=== PATIENT | male | born 1970 | race Caucasian/White ===

== ENCOUNTER 2018-11-06 06:33 | Inpatient (IN) | payer OTHER, MEDICAID, MEDICARE ==
[2018-11-06] MEDS: SOD CHLORIDE 0.9% 500 ML IV (06:51)
[2018-11-06] MEDS: LABETALOL HCL 20MG INJ IV (06:51)
[2018-11-06] MEDS: ASPIRIN 325 MG TAB PO (06:51)
[2018-11-06 06:56] LABS: ADD MAN DIFF? NO
[2018-11-06 06:59] LABS: BASOPHIL # 0.1 10^3/ul (0.0-0.1); BASOPHILS % 0.8 % (0.0-2.0); EOSINOPHILS # 0.4 10^3/ul (0.0-0.5); EOSINOPHILS % 5.4 % (0.0-7.0); HEMATOCRIT 39.4 % (42.0-52.0); HEMOGLOBIN 12.3 g/dl (14.0-18.0); LYMPHOCYTES # 1.8 10^3/ul (0.8-2.9); MEAN CORPUSCULAR HEMOGLOBIN 28.1 pg (29.0-33.0); MEAN CORPUSCULAR HGB CONC 31.2 g/dl (32.0-37.0); MEAN PLATELET VOLUME 9.3 fl (7.4-10.4); MONOCYTE # 0.7 10^3/ul (0.3-0.9); MONOCYTES % 10.1 % (0.0-11.0); NEUTROPHIL # 3.6 10^3/ul (1.6-7.5); NEUTROPHILS % 55.5 % (39.0-77.0); PLATELET COUNT 239 10^3/UL (140-415); RED BLOOD COUNT 4.38 10^6/ul (4.70-6.10)
[2018-11-06 06:59] LABS: WHITE BLOOD COUNT 6.5 10^3/ul (4.8-10.8)
[2018-11-06 07:21] LABS: INR 1.05; PROTIME 13.8 Sec (11.9-14.9); PT RATIO 1.1
[2018-11-06 07:22] LABS: PARTIAL THROMBOPLASTIN TIME 31.2 Sec (23.0-35.0)
[2018-11-06 07:31] LABS: ALANINE AMINOTRANSFERASE 23 IU/L (13-69); ALBUMIN 3.8 g/dl (3.3-4.9); ALBUMIN/GLOBULIN RATIO 0.97; ALKALINE PHOSPHATASE 179 IU/L (42-121); ANION GAP 17 (5-13); ASPARTATE AMINO TRANSFERASE 25 IU/L (15-46); BLOOD UREA NITROGEN 34 mg/dl (7-20); CALCIUM 7.4 mg/dl (8.4-10.2); CARBON DIOXIDE 27 mmol/L (21-31); CHLORIDE 100 mmol/L (97-110); CREATINE KINASE 39 IU/L (23-200); CREATININE 6.38 mg/dl (0.61-1.24); Estimated GFR 9 mL/min (>60); GLUCOSE 106 mg/dl (70-220); POTASSIUM 4.1 mmol/L (3.5-5.1); SODIUM 144 mmol/L (135-144); TOTAL PROTEIN 7.7 g/dl (6.1-8.1)
[2018-11-06] MEDS: DILTIAZEM 25 MG INJ IV ×2 (07:38→08:14)
[2018-11-06 07:39] LABS: CK INDEX 0.9; CK-MB 0.35 ng/ml (0.0-2.4); TROPONIN-I < 0.012 ng/ml (0.000-0.120)
[2018-11-06] MEDS ORDERED: ACETAMINOPHEN 325 MG TAB PO (09:00)
[2018-11-06] MEDS ORDERED: ONDANSETRON 4 MG INJ IV ×2 (09:00→13:00)
[2018-11-06] MEDS ORDERED: LORAZEPAM 0.5 MG TAB PO (13:00)
[2018-11-06 15:02] LABS: CREATINE KINASE 42 IU/L (23-200)
[2018-11-06 15:15] LABS: CK INDEX 0.9; CK-MB 0.39 ng/ml (0.0-2.4); TROPONIN-I < 0.012 ng/ml (0.000-0.120)
[2018-11-06] MEDS: SEVELAMER CARBONATE 0.8 GM PKT PO (17:44)
[2018-11-06] MEDS: DOCUSATE SODIUM 100 MG CAP PO ×2 (17:45→21:03)
[2018-11-06] MEDS: CINACALCET 30 MG TAB PO (17:45)
[2018-11-06] MEDS: HEPARIN 5,000 UNIT/1 ML VIAL SC (21:01)
[2018-11-06 21:10] LABS: CREATINE KINASE 49 IU/L (23-200)
[2018-11-06 21:23] LABS: CK INDEX 0.7; CK-MB 0.32 ng/ml (0.0-2.4); TROPONIN-I < 0.012 ng/ml (0.000-0.120)
[2018-11-07] MEDS: ACETAMINOPHEN 325 MG TAB PO (01:20)
[2018-11-07 06:06] LABS: ADD MAN DIFF? NO
[2018-11-07 06:12] LABS: BASOPHIL # 0.1 10^3/ul (0.0-0.1); BASOPHILS % 0.9 % (0.0-2.0); EOSINOPHILS # 0.4 10^3/ul (0.0-0.5); EOSINOPHILS % 6.9 % (0.0-7.0); HEMATOCRIT 38.7 % (42.0-52.0); HEMOGLOBIN 12.1 g/dl (14.0-18.0); LYMPHOCYTES # 1.9 10^3/ul (0.8-2.9); MEAN CORPUSCULAR HEMOGLOBIN 28.1 pg (29.0-33.0); MEAN CORPUSCULAR HGB CONC 31.3 g/dl (32.0-37.0); MEAN CORPUSCULAR VOLUME 89.8 fl (82.0-101.0); MEAN PLATELET VOLUME 9.6 fl (7.4-10.4); MONOCYTE # 0.5 10^3/ul (0.3-0.9); MONOCYTES % 8.9 % (0.0-11.0); NEUTROPHIL # 2.7 10^3/ul (1.6-7.5); NEUTROPHILS % 49.1 % (39.0-77.0); PLATELET COUNT 236 10^3/UL (140-415); RED BLOOD COUNT 4.31 10^6/ul (4.70-6.10); RED CELL DISTRIBUTION WIDTH 17.1 % (11.5-14.5)
[2018-11-07 06:12] LABS: WHITE BLOOD COUNT 5.5 10^3/ul (4.8-10.8)
[2018-11-07 06:51] LABS: ANION GAP 14 (5-13); BLOOD UREA NITROGEN 20 mg/dl (7-20); CARBON DIOXIDE 30 mmol/L (21-31); CHLORIDE 97 mmol/L (97-110); Estimated GFR 14 mL/min (>60); GLUCOSE 84 mg/dl (70-220); SODIUM 141 mmol/L (135-144)
[2018-11-07] MEDS: SEVELAMER CARBONATE 0.8 GM PKT PO ×2 (08:39→12:00)
[2018-11-07] MEDS: DOCUSATE SODIUM 100 MG CAP PO (08:40)
[2018-11-07] MEDS: MULTIVIT/CA CARB/B CMPLX/FA TAB PO (08:40)
[2018-11-07] MEDS: FAMOTIDINE 20 MG TAB PO (08:40)
[2018-11-07] MEDS: ASPIRIN 81 MG TAB PO (08:40)
[2018-11-07] MEDS: HEPARIN 5,000 UNIT/1 ML VIAL SC (08:48)
[2018-11-07] MEDS ORDERED: NON-FORMULARY/PATIENT OWN MED (Folic Acid/Vitamin B Comp W-C (Nephrocaps Capsule) 1 MG) PO (09:00)
[2018-11-07] MEDS ORDERED: METOPROLOL 5 MG INJ IV (12:30)
== END 2018-11-07 13:31 | disposition home or self-care (01) | DRG 308 ==
LOC: E/R 06:33 → 6WM 09:01
PROC: 5A1D70Z Performance of Urinary Filtration, Intermittent, Less than 6 Hours Per Day (ICD-10-PCS; principal; 2018-11-07)
DX: R00.2 Palpitations (principal); N18.6 End stage renal disease; T86.12 Kidney transplant failure; I13.0 Hypertensive heart and chronic kidney disease with heart failure and stage 1 through stage 4 chronic kidney disease, or unspecified chronic kidney disease; Z99.2 Dependence on renal dialysis; Q05.9 Spina bifida, unspecified; I95.89 Other hypotension; Z93.3 Colostomy status; I25.10 Atherosclerotic heart disease of native coronary artery without angina pectoris; D64.9 Anemia, unspecified; E78.00 Pure hypercholesterolemia, unspecified; R79.0 Abnormal level of blood mineral; N18.9 Chronic kidney disease, unspecified; I50.9 Heart failure, unspecified; E78.5 Hyperlipidemia, unspecified; E21.3 Hyperparathyroidism, unspecified
CPT/HCPCS: 71045; 80048; 80053; 82550; 82553; 83735; 84443; 84484; 85025; 85610; 85730; 90935; 93005; 93306; 96374; 96375; 96376; 99291-25